=== PATIENT | male | born 1950 | race Caucasian/White ===

== ENCOUNTER 2017-10-17 16:08 | Inpatient (IN) | payer MEDICARE, BC, OTHER ==
[~2017-10-17] VITALS: Ht 195.6 cm; Wt 136.1 kg
[2017-10-17 16:36] LABS: ABSOLUTE BASOPHILS 0.1 thou/uL (0.0-0.2); ABSOLUTE EOSINOPHILS 0.4 thou/uL (0.0-0.7); ABSOLUTE LYMPHOCYTES 1.9 thou/uL (0.8-5.3); ABSOLUTE MONOCYTES 0.9 thou/uL (0.0-1.2); ABSOLUTE NEUTROPHILS 7.1 thou/uL (1.6-8.1); BASOPHILS 1.2 %; EOSINOPHILS 3.4 %; HEMATOCRIT 39.7 % (42.0-52.0); LYMPHOCYTES 18.4 %; MCH 27.9 pg (26.0-34.0); MCHC 32.8 g/dL (28.0-37.0); MCV 84.9 fL (80.0-100.0); MONOCYTES 8.2 %; MPV 9.5 fl. (7.2-11.1); NUCLEATED RBCS 0 /100WBC; PLATELET COUNT* 225 thou/uL (150-400); POLYS 68.8 %; RBC 4.68 mil/uL (4.50-6.00); WBC 10.4 thou/uL (4.0-11.0)
[2017-10-17 16:41] LABS: ANION GAP 8 mmol/L (7-16); BUN 27 mg/dL (7-18); CALCIUM 9.2 mg/dL (8.5-10.1); CHLORIDE 106 mmol/L (98-107); CO2 27 mmol/L (21-32); CREATININE 1.3 mg/dL (0.6-1.3); GLUCOSE 103 mg/dL (70-99); POTASSIUM 4.3 mmol/L (3.5-5.1); SODIUM 141 mmol/L (136-145)
[2017-10-17 16:48] LABS: ALBUMIN 3.7 g/dL (3.4-5.0); ALKALINE PHOSPHATASE 49 U/L (46-116); SGOT 26 U/L (15-37); SGPT 30 U/L (30-65); TOTAL BILIRUBIN 0.7 mg/dL (<0.1-1.0); TOTAL PROTEIN 7.1 g/dL (6.4-8.2); TROPONIN-I LEVEL <0.06 ng/mL (<0.06)
[2017-10-17 17:28] LABS: APTT 26.1 Seconds (25.0-31.3); INR 1.2; PROTIME 11.5 Seconds (9.20-11.50)
[2017-10-17] MEDS ORDERED: LASIX 40 MG TAB40 M2 PO (17:38)
[2017-10-17] MEDS ORDERED: TOPROL XL25 MG PO (17:38)
[2017-10-17] MEDS ORDERED: KLOR-CON 1010 MEQ PO (17:38)
[2017-10-17] MEDS ORDERED: ALDACTONE25 MG PO (17:38)
[2017-10-17] MEDS ORDERED: ASPIR 8181 MG PO (17:39)
[2017-10-17] MEDS ORDERED: AMLODIPINE BESY10 MG PO (17:39)
[2017-10-17] MEDS ORDERED: MOBIC15 MG PO (17:39)
[2017-10-17] MEDS ORDERED: LIPITOR20 MG PO (17:40)
[2017-10-17] MEDS ORDERED: METHOTREXATE 22.5 MG PO (17:41)
[2017-10-17] MEDS ORDERED: FOLIC ACID 1 MG1 MG PO (17:41)
[2017-10-17 20:07] VITALS: BP 105/66
[2017-10-17 20:30] VITALS: BP 113/65
[2017-10-17] MEDS ORDERED: TRAZODONE HCL50 MG PO (23:35)
[2017-10-18] VITALS (7 sets, daily range): BP systolic 83–124; BP diastolic 52–77
[2017-10-18 05:48] LABS: ABSOLUTE BASOPHILS 0.1 thou/uL (0.0-0.2); ABSOLUTE EOSINOPHILS 0.3 thou/uL (0.0-0.7); ABSOLUTE LYMPHOCYTES 1.4 thou/uL (0.8-5.3); ABSOLUTE MONOCYTES 0.7 thou/uL (0.0-1.2); ABSOLUTE NEUTROPHILS 5.5 thou/uL (1.6-8.1); BASOPHILS 1.1 %; EOSINOPHILS 3.7 %; HEMATOCRIT 38.2 % (42.0-52.0); LYMPHOCYTES 17.5 %; MCHC 31.4 g/dL (28.0-37.0); MONOCYTES 8.8 %; MPV 9.8 fl. (7.2-11.1); NUCLEATED RBCS 0 /100WBC; PLATELET COUNT* 191 thou/uL (150-400); POLYS 68.9 %; RBC 4.44 mil/uL (4.50-6.00)
[2017-10-18 06:27] LABS: CALCIUM 8.7 mg/dL (8.5-10.1); CREATININE 1.2 mg/dL (0.6-1.3); POTASSIUM 4.6 mmol/L (3.5-5.1)
--- NOTE | 2017-10-18 07:03 | NUR ---
RECEIVED REPORT FROM ER NURSE, RACHELLE, AT 1954. PT ARRIVED VIA CART AT 2019. VOICED NO CONCERNS, PT ORIENTED TO ROOM AND CALL LIGHT, REFUSED SCD'S THIS SHIFT. PT CONTINUES ON IV FLUIDS, LUNGS CLEAR, DENIES PAIN, CALL LIGHT WITHIN REACH. PT NPO FOR CARIDOLOGY CONSULT.
--- NOTE | 2017-10-18 10:00 | NUR ---
ASSUMED CARE OF PT AT 0730. PT RESTING IN BED WAITING FOR CARDIOLOGY. PT NPO FOR CARDIOLOGY CONSULT. PT A&0X4. DENIES ANY PAIN OR SHORTNESS OF BREATH. PT ON 2L NC SAT 99%. PT SAT ON RA 95%. PT TRACING AFIB ON THE ELEMENT WINDING MACHINE TENDER. RATE IN THE 110'S. PT UP AD ROD IN ROOM. IVF. AM ASSESSMENT CHARTED. MEDICATIONS PER DEC. PT REPOSITIONS SELF IN BED WITH REMINDERS. HOURLY ROUNDING OBSERVED. BED IN LOW POSITION. CALL LIGHT WITHIN REACH. WILL CONTINUE PLAN OF CARE.
--- NOTE | 2017-10-18 14:37 | NUR ---
CM ASSESSMENT: Pt is A&O. Resides at home alone. Independent with ADLs, continues to cook, clean and drive. Pt states that he does have support, though not a lot of it. Pt wears a leg orthotic. No other DME. No hx of HH or SNF. Goal is to return home once medically stable.
--- NOTE | 2017-10-18 17:24 | NUR ---
NO ACUTE CHANGES THROUGHOUT SHIFT. REFER TO CHARTING. CARDIOLOGY HERE TO SEE PT. ORDERS RECEIVED TO START AMIODARONE LOAD AND ELIQUIS. PT CONTINUES TO TRACE AFIB ON THE RUG SHAMPOOER. RATE IN THE 110'S. PT DENIES ANY SHORTNESS OF BREATH OR PAIN. ON RA SAT UPPER 90'S. PT UP AD ROD IN ROOM. IVF. MEDICATIONS PER DEC. PT REPOSITIONS SELF IN BED. HOURLY ROUNDING OBSERVED. BED IN LOW POSITION. CALL LIGHT WITHIN REACH. WILL CONTINUE PLAN OF CARE.
--- NOTE | 2017-10-18 17:40 | EKG ---
[place] [address] ELECTROCARDIOGRAM REPORT Name: MULUGETA LARES Room: [address] ADM IN [facility]#: [id number] Admission: 10/17/17 Attend Phys: Benjamin Hart MD Discharge: Date of : 50 Report #: [id number] THIS REPORT FOR: //name// [facility] ED Test Date: 2017-10-17 Test Time: 16:16:28 Pat Name: MULUGETA LARES Department: Room: [facility] Gender: Hotel Custodian: Aparna WAKEFIELD : 1950 Requested By: Nlida Resendez Order Number: [id number] MD: Brien Angulo Measurements Intervals [place] Rate: 118 P: [place]: QRS: -47 QRSD: 127 T: 116 QT: 349 QTc: 490 Interpretive Statements Atrial fibrillation Left bundle branch block No previous ECG available for comparison Electronically Signed On 10-18-2017 17:40:34 MODEL HOME SALES GREETER by Brien Angulo [email or web address] <ELECTRONICALLY SIGNED> By: Brien Angulo MD, [facility] 10/18/17 1740 1616 15 Brien Angulo MD, FACC /EPI
[2017-10-19] VITALS (25 sets, daily range): BP systolic 105–149; BP diastolic 55–96
[2017-10-19 05:28] LABS: ABSOLUTE BASOPHILS 0.1 thou/uL (0.0-0.2); ABSOLUTE EOSINOPHILS 0.2 thou/uL (0.0-0.7); ABSOLUTE LYMPHOCYTES 1.2 thou/uL (0.8-5.3); ABSOLUTE MONOCYTES 0.7 thou/uL (0.0-1.2); ABSOLUTE NEUTROPHILS 5.8 thou/uL (1.6-8.1); BASOPHILS 0.8 %; EOSINOPHILS 3.1 %; HEMATOCRIT 36.3 % (42.0-52.0); HEMOGLOBIN 11.8 gm/dL (14.0-18.0); LYMPHOCYTES 15.4 %; MCH 27.8 pg (26.0-34.0); MCHC 32.5 g/dL (28.0-37.0); MCV 85.4 fL (80.0-100.0); MONOCYTES 8.5 %; MPV 9.4 fl. (7.2-11.1); NUCLEATED RBCS 0 /100WBC; PLATELET COUNT* 173 thou/uL (150-400); POLYS 72.2 %; RBC 4.26 mil/uL (4.50-6.00); RDW-CV 16.8 % (10.5-14.5)
[2017-10-19 05:56] LABS: ALBUMIN 3.4 g/dL (3.4-5.0); CREATININE 1.1 mg/dL (0.6-1.3); POTASSIUM 4.4 mmol/L (3.5-5.1); TOTAL BILIRUBIN 0.7 mg/dL (<0.1-1.0)
--- NOTE | 2017-10-19 07:09 | NUR ---
Pt reports he got some sleep overnight. Pleasant and cooperative; VSS though HR has been 110's to 120's, up to 130's with activity. First dose of PO amiodarone given at 2014 last night. HR improved some since dosing. No complaints. Will continue to monitor.
--- NOTE | 2017-10-19 10:30 | NUR ---
ASSUMED CARE OF PT AT 0730. PT RESTING IN BED WAITING FOR BREAKFAST. PT A&0X4. DENIES ANY PAIN OR SHORTNESS OF BREATH AT THIS TIME. PT TRACING AFIB ON THE CHIEF OPERATOR HYDROFORMER. RATE IN THE 110'S. 120'S-130'S WITH ACTIVITY. ON RA SAT UPPER 90'S. PT ON AMIO LOAD CURRENTLY. IVF. PT UP AD ROD IN ROOM. PT GOAL FOR TODAY IS RATE CONTROL AND CARDIOLOGY INPUT. AM ASSESSMENT CHARTED. MEDICATIONS PER DEC. PT REPOSITIONS SELF IN BED WITH REMINDERS. HOURLY ROUNDING OBSERVED. BED IN LOW POSITION. CALL LIGHT WITHIN REACH. WILL CONTINUE PLAN OF CARE.
--- NOTE | 2017-10-19 15:24 | TEE ---
[place] [address] TRANSESOPHAGEAL ECHOCARDIOGRAM Name: MULUGETA LARES Room: [address] IN [facility]#: [id number] Admission: 10/17/17 Attend Phys: Benjamin Hart, Discharge: Date of : 50 Date of Service: 10/19/17 1524 Report #: [id number] THIS REPORT FOR: //name// APPROVED REPORT Study performed: 10/19/2017 14:31:33 EXAM: Transesophageal Echocardiogram Patient Location: In-Patient Room #: [facility] Status: routine BSA: 2.66 HR: 118 bpm BP: 140/82 mmHg Rhythm: Atrial Fibrillation Other Information Study Quality: Good Indications Atrial Fibrillation Echo Enhancing Agent Indication: Rule out Shunt Agent(s) / Amount(s) Used: Agitated Saline 10 cc Procedure After obtaining informed consent, patient underwent transesophageal echo in the [employer]. Type of Sedation : Conscious Sedation Sedation was administered by Vicki Merino RN. Sedation start time: 1430 Case end Time: 1447 Sedation was achieved intravenously with: Versed (6) Fentanyl (150) Transesophageal probe was inserted and advanced into esophagus without difficulty by Brien Angulo MD, FACC. Echo enhancement indication: R/O Septal defect. Echo enhancement agent administered: Agitated Saline The ELADIO was performed without complications. Synchronized Cardioversion acheived with 360 Joules after 2 attempt(s). Throughout the procedure, the blood pressure, pulse oximetry, cardiac rhythm, and rate were monitored. The patient tolerated the procedure without adverse effects. Recovery from conscious sedation was uneventful and vital signs were [address] [address] TRANSESOPHAGEAL ECHOCARDIOGRAM Name: MULUGETA LARES Reg Room: [address]#: [id number] Admission: 10/17/17 Attend Phys: Benjamin Hart, Discharge: Date of : 50 Date of Service: 10/19/17 1524 Report #: [id number] stable. Left Ventricle The left ventricle is normal size. There is normal LV segmental wall motion. There is normal left ventricular wall thickness. Left ventricular systolic function is normal. LVEF is 60-65%. Right Ventricle The right ventricle is normal size. The right ventricular systolic function is normal. Atria No thrombus is visualized in the left atrium or appendage. Left atrium is mildly dilated. Interatrial septum is intact without evidence of ASD or PFO. Right atrium is mildly dilated. Aortic Valve The aortic valve is normal in structure. Moderate aortic regurgitation. There is no aortic valvular stenosis. Mitral Valve The mitral valve is normal in structure. Moderate mitral regurgitation. No evidence of mitral valve stenosis. Tricuspid Valve The tricuspid valve is normal in structure. Pulmonic Valve The pulmonary valve is normal in structure. Great Vessels The aortic root is normal in size. Pericardium There is no pericardial effusion. <Conclusion> The left ventricle is normal size. There is normal left ventricular wall thickness. Left ventricular systolic function is normal. LVEF is 60-65%. No thrombus is visualized in the left atrium or appendage. Left atrium is mildly dilated. Right [place] [address] TRANSESOPHAGEAL ECHOCARDIOGRAM Name: LUDAMULUGETA Reg Room: [address] IN [facility]#: [id number] Admission: 10/17/17 Attend Phys: Benjamin Hart, Discharge: Date of : 50 Date of Service: 10/19/17 1524 Report #: [id number] Moderate aortic regurgitation. Moderate mitral regurgitation. <ELECTRONICALLY SIGNED> By: Brien Angulo MD, FACC 10/19/17 1524 1524 1524 Brien Angulo MD, FACC /INF
--- NOTE | 2017-10-19 17:35 | NUR ---
PT BACK FROM LADIES LOCKER ROOM ATTENDANT. PT RECEIVED ELADIO AND CARDIOVERSION. PER GAUDENCIO, LADIES LOCKER ROOM ATTENDANT RN, PT SHOCKED 2 TIMES. PT CURRENTLY TRACING SR WITH BBB AND FIRST DEGREE ON THE TIP CEMENTER. PT DENIES ANY PAIN OR SHORTNESS OF BREATH. STATES HE FEELS GOOD. CARDIZEM GTT DISCONTINUED. PO CARDIZEM STARTED PER JILL, BAKER BISCUIT. IVF DISCONTINUED PER DR RICARDO. DAUGHTER AT BEDSIDE AT THIS TIME. PT CONTINUES TO BE ON RA SAT UPPER 90'S. NEW IV PLACED TO L HAND, SL. PT UP AD ROD IN ROOM. MEDICATIONS PER DEC. PT REPOSITIONS SELF. HOURLY ROUNDING OBSERVED. BED IN LOW POSITION. CALL LIGHT WITHIN REACH. WILL CONTINUE PLAN OF CARE.
--- NOTE | 2017-10-19 17:41 | EKG ---
[place] [address] ELECTROCARDIOGRAM REPORT Name: LARESMULUGETA Reg Room: [address] ADM IN [facility].#: [id number] Admission: 10/17/17 Attend Phys: Benjamin Hart MD Discharge: Date of : 50 Report #: [id number] THIS REPORT FOR: //name// [facility] Test Date: 2017-10-19 Test Time: 13:25:55 Pat Name: MULUGETA LARES Department: Room: [address] Gender: M Lens Polisher: 27 : 1950 Requested By: Alanna Case Order Number: [id number] Rashel MD: Brien Angulo Measurements Intervals [place] Rate: 119 P: ID: QRS: -45 QRSD: 126 T: 119 QT: 346 QTc: 487 Interpretive Statements Atrial fibrillation Left bundle branch block Compared to ECG 10/17/2017 16:16:28 No significant changes Electronically Signed On 10-19-2017 17:41:39 JANITOR HEAD by Brien Angulo [email or web address] <ELECTRONICALLY SIGNED> By: Brien Angulo MD, [facility] 10/19/17 1741 1325 1325 Brien Angulo MD, FACC /EPI
[2017-10-20] VITALS: BP 123/69
[2017-10-20 03:57] VITALS: BP 139/77
[2017-10-20 04:58] LABS: MCHC 31.7 g/dL (28.0-37.0); MCV 85.4 fL (80.0-100.0); MPV 9.2 fl. (7.2-11.1); NUCLEATED RBCS 0 /100WBC; PLATELET COUNT* 180 thou/uL (150-400); RBC 4.46 mil/uL (4.50-6.00); RDW-CV 16.8 % (10.5-14.5); WBC 11.1 thou/uL (4.0-11.0)
[2017-10-20 05:23] LABS: CALCIUM 9.2 mg/dL (8.5-10.1); CREATININE 1.2 mg/dL (0.6-1.3); POTASSIUM 4.6 mmol/L (3.5-5.1)
[2017-10-20 06:18] LABS: ABSOLUTE EOSINOPHILS 0.1 thou/uL (0.0-0.7); ABSOLUTE LYMPHOCYTES 1.7 thou/uL (0.8-5.3); ABSOLUTE MONOCYTES 1.2 thou/uL (0.0-1.2); ABSOLUTE NEUTROPHILS 8.1 thou/uL (1.6-8.1); ANISOCYTOSIS 1+; PLATELET ESTIMATE ADEQUATE; POIKILOCYTOSIS 1+
--- NOTE | 2017-10-20 07:00 | NUR ---
Pt reports he rested well overnight. Remains in SR per monitor, rate 60s. VSS. States he is hopeful of being discharged today. Will continue to monitor.
[2017-10-20 07:30] VITALS: BP 120/58
[2017-10-20 12:13] VITALS: BP 127/65
--- NOTE | 2017-10-20 14:00 | NUR ---
RECEIVED PT CARE 0700. PT IS ALERT AND ORIENTED X4. VSS. JEWELRY CONSULTANT TRACING SR WITH 1ST/BBB. PATIENT COMPLAINS OF MORE SHORTNESS OF AIR THAN USUAL TODAY. O2 SAT 93% ON ROOM AIR. IV DOSE OF LASIX ORDERED AND GIVEN PER CARDIOLOGY. AM ASSESSMENT CHARTED. MEDS PER MAR. CALL LIGHT WITHIN REACH. WILL CONTINUE TO MONITOR.
--- NOTE | 2017-10-20 15:49 | EKG ---
[place] [address] ELECTROCARDIOGRAM REPORT Name: MULUGETA LARES Room: [address] ADM IN [facility].#: [id number] Admission: 10/17/17 Attend Phys: Benjamin Hart MD Discharge: Date of : 50 Report #: [id number] THIS REPORT FOR: //name// [facility] Test Date: 2017-10-20 Test Time: 09:18:17 Pat Name: MULUGETA LARES Department: Room: [address] Gender: M Predictive Maintenance Technician: [facility] : 1950 Requested By: Alanna Case Order Number: [id number] Reading MD: Adalberto Damian Measurements Intervals [place] Rate: 69 P: -35 LA: 233 QRS: -43 QRSD: 131 T: 41 QT: 438 QTc: 470 Interpretive Statements Sinus rhythm Atrial premature complex Prolonged LA interval Left bundle branch block Compared to ECG 10/19/2017 13:25:55 Atrial premature complex(es) now present First degree AV block now present Atrial fibrillation no longer present Electronically Signed On 10-20-2017 15:48:53 LINE MECHANIC by Adalberto Damian [email or web address] <ELECTRONICALLY SIGNED> By: Adalberto Damian MD, [facility] 10/20/17 1548 7 7 Adalberto Damian MD, [facility] /EPI
[2017-10-20 16:45] VITALS: BP 126/67
--- NOTE | 2017-10-20 19:05 | NUR ---
PATIENT PROGRESSING TOWARDS GOALS. SHORTNESS OF AIR DECREASED AFTER LASIX GIVEN. PATIENT NOT AUDIBLY WHEEZING THIS AFTERNOON. TOLERATING HIS DIET WELL WITHOUT NAUSEA OR VOMITING. NO COMPLAINTS OF PAIN THIS SHIFT. HOLDING DISCHARGE TILL TOMORROW TO MONITOR BLOOD PRESSURE AND SHORTNESS OF AIR. HOURLY ROUNDING CHARTED. CALL LIGHT WITHIN REACH. WILL CONTINUE TO MONITOR.
[2017-10-20 20:05] VITALS: BP 121/56
[2017-10-21] VITALS: BP 120/63
[2017-10-21 04:00] VITALS: BP 127/64
--- NOTE | 2017-10-21 07:00 | NUR ---
Pt reports he got some sleep last night, but not very restful overall. VSS. States he is hopeful of being discharged today. Will continue to monitor.
[2017-10-21 07:30] VITALS: BP 124/72
[2017-10-21 12:16] VITALS: BP 126/57
--- NOTE | 2017-10-21 12:38 | NUR ---
RECEIVED PT CARE 0700. PT IS ALERT AND ORIENTED X4. VSS. WOOD WINDOW AND DOOR CRAFTSMAN TRACING SR WITH 1ST/BBB. PATIENT DENIES PAIN. NO SOA. O2 SAT 93% ON ROOM AIR. UP AD ROD IN ROOM WITH BATHROOM PRIVILEDGES. GAIT IS STEADY. AM ASSESSMENT CHARTED. MEDS PER MAR. PLANNING FOR DC TO HOME THIS AFTERNOON. WILL CONTINUE TO MONITOR.
[2017-10-21] MEDS ORDERED: PACERONE 200 M200 M1 PO (14:31)
[2017-10-21] MEDS ORDERED: CARDIZEM CD120 MG PO (14:33)
[2017-10-21] MEDS ORDERED: PACERONE200 MG PO (14:33)
[2017-10-21] MEDS ORDERED: ELIQUIS5 MG PO (14:34)
[2018-01-05] MEDS ORDERED: ALDACTONE50 MG PO (11:29)
[2018-07-27] MEDS ORDERED: FISH OIL 1,001000 M2 PO (10:00)
== END 2017-10-21 15:15 | disposition home or self-care (01) | DRG 291 ==
LOC: M.ERS 16:08 → M.2W 18:13 → M.TBA-ER 18:13 → M.2W 20:53
PROVIDERS: Personal Emergency Response Attendant; ADMIT Internal Medicine
PROC: B24BZZ4 Ultrasonography of Heart with Aorta, Transesophageal (ICD-10-PCS; principal; 2017-10-19)
PROC: 5A2204Z Restoration of Cardiac Rhythm, Single (ICD-10-PCS; 2017-10-21)
DX: I11.0 Hypertensive heart disease with heart failure (principal); J96.20 Acute and chronic respiratory failure, unspecified whether with hypoxia or hypercapnia; I48.91 Unspecified atrial fibrillation; I50.31 Acute diastolic (congestive) heart failure; I95.9 Hypotension, unspecified; M19.90 Unspecified osteoarthritis, unspecified site; I35.1 Nonrheumatic aortic (valve) insufficiency; E66.9 Obesity, unspecified; E78.5 Hyperlipidemia, unspecified; Z79.899 Other long term (current) drug therapy; Z68.35 Body mass index [BMI] 35.0-35.9, adult; Z82.49 Family history of ischemic heart disease and other diseases of the circulatory system

== ENCOUNTER → 2017-10-31 | Outpatient (CLI) | payer MEDICARE, BC, OTHER ==
[~2017-10-31] MED LIST: ALDACTONE25 MG PO; ALDACTONE50 MG PO; AMLODIPINE BESY10 MG PO; ASPIR 8181 MG PO; CARDIZEM CD120 MG PO; ELIQUIS5 MG PO; FISH OIL 1,001000 M2 PO; FOLIC ACID 1 MG1 MG PO; KLOR-CON 1010 MEQ PO; LASIX 40 MG TAB40 M2 PO; LIPITOR20 MG PO; METHOTREXATE 22.5 MG PO; MOBIC15 MG PO; PACERONE 200 M200 M1 PO; PACERONE200 MG PO; TOPROL XL25 MG PO; TRAZODONE HCL50 MG PO
== END ==
LOC: M.RAD 11:24
DX: I48.91 Unspecified atrial fibrillation (principal); I51.7 Cardiomegaly; R91.8 Other nonspecific abnormal finding of lung field; J98.11 Atelectasis

== ENCOUNTER → 2018-01-05 | Outpatient (CLI) | payer MEDICARE, BC, OTHER ==
[2018-01-05] VITALS (14 sets, daily range): BP systolic 96–118; BP diastolic 49–78
--- NOTE | 2018-01-05 16:18 | TEE ---
[place] [address] TRANSESOPHAGEAL ECHOCARDIOGRAM Name: MULUGETA LARES Room: [facility]#: [id number] Admission: 01/05/18 Attend Phys: Brien Angulo, Discharge: Date of : 50 Date of Service: 01/05/18 1618 Report #: [id number] THIS REPORT FOR: //name// APPROVED REPORT Study performed: 01/05/2018 11:35:17 EXAM: Transesophageal Echocardiogram Patient Location: Out-Patient Status: routine BSA: 2.62 HR: 87 bpm BP: 117/63 mmHg Rhythm: Atrial Fibrillation Other Information Study Quality: Good Indications Atrial Fibrillation Pre cardioversion Echo Enhancing Agent Indication: Rule out Shunt Agent(s) / Amount(s) Used: Agitated Saline 10 cc Procedure After obtaining informed consent, patient underwent transesophageal echo in the [employer]. Type of Sedation : Conscious Sedation Sedation was administered by Vicki Merino RN. Sedation start time: 1134 Case end Time: 1155 Sedation was achieved intravenously with: Versed (5) Fentanyl (100) Transesophageal probe was inserted and advanced into esophagus without difficulty by Brien Angulo MD, [facility]. Echo enhancement indication: R/O Septal defect. Echo enhancement agent administered: Agitated Saline The ELADIO was performed without complications. Synchronized Cardioversion acheived with 300 Joules after 1 attempt(s). Rhythm following Synchronized Cardioversion: Normal Sinus Rhythm Throughout the procedure, the blood pressure, pulse oximetry, cardiac rhythm, and rate were monitored. The patient tolerated the procedure without adverse [place] [address] TRANSESOPHAGEAL ECHOCARDIOGRAM Name: MULUGETA LARES Room: [facility]#: [id number] Admission: 01/05/18 Attend Phys: Brien Angulo, Discharge: Date of : 50 Date of Service: 01/05/18 1618 Report #: [id number] from conscious sedation was uneventful and vital signs were stable. Left Ventricle The left ventricle is normal size. There is normal left ventricular wall thickness. The left ventricular systolic function is normal. LVEF is 60-65%. Right Ventricle The right ventricle is normal size. The right ventricular systolic function is normal. Atria No thrombus is visualized in the left atrium or appendage. Left atrium is mildly dilated. Interatrial septum is intact without evidence of ASD or PFO. Right atrium is mildly dilated. Aortic Valve The aortic valve is normal in structure. Moderate aortic regurgitation. Mitral Valve The mitral valve is normal in structure. Moderate mitral regurgitation. Tricuspid Valve Tricuspid valve is not well visualized. Pulmonic Valve Pulmonic valve is not well visualized. Great Vessels The ascending aorta is normal in size. Pericardium There is no pericardial effusion. <Conclusion> The left ventricle is normal size. There is normal left ventricular wall thickness. The left ventricular systolic function is normal. LVEF is 60-65%. Interatrial septum is intact without evidence of ASD or PFO. No thrombus is visualized in the left atrium or appendage. Left atrium [place] [address] TRANSESOPHAGEAL ECHOCARDIOGRAM Name: MULUGETA LARES Reg Room: [facility]#: [id number] Admission: 01/05/18 Attend Phys: Brien Angulo, Discharge: Date of : 50 Date of Service: 01/05/181617 Report #: [id number] Moderate aortic regurgitation. Moderate mitral regurgitation. <ELECTRONICALLY SIGNED> By: Brien Angulo MD, FACC 01/05/18 1618 17 17 Brien Angulo MD, FACC /INF
== END ==
LOC: M.CL 10:33
DX: I48.91 Unspecified atrial fibrillation (principal)

== ENCOUNTER → 2018-07-27 | Outpatient (CLI) | payer MEDICARE, BC, OTHER ==
[2018-07-27] VITALS (9 sets, daily range): BP systolic 104–136; BP diastolic 53–77
[2018-07-27 10:03] LABS: HEMOGLOBIN 13.8 gm/dL (14.0-18.0); MCH 31.5 pg (26.0-34.0); MCHC 33.7 g/dL (28.0-37.0); MCV 93.5 fL (80.0-100.0); MPV 10.1 fl. (7.2-11.1); RBC 4.38 mil/uL (4.50-6.00); RDW-CV 15.6 % (10.5-14.5); WBC 8.6 thou/uL (4.0-11.0)
[2018-07-27 10:15] LABS: ANION GAP 5 mmol/L (7-16); BUN 37 mg/dL (7-18); CHLORIDE 103 mmol/L (98-107); CO2 28 mmol/L (21-32); CREATININE 1.6 mg/dL (0.6-1.3); GLUCOSE 108 mg/dL (70-99); POTASSIUM 4.4 mmol/L (3.5-5.1); SODIUM 136 mmol/L (136-145)
[2018-07-27 10:17] LABS: APTT 28.9 Seconds (25.0-31.3); INR 1.2
[2018-07-27 10:21] LABS: ALBUMIN 3.7 g/dL (3.4-5.0); ALKALINE PHOSPHATASE 44 U/L (46-116); CHOLESTEROL 125 mg/dL (<200); HDL CHOLESTEROL 43 mg/dL (>40); LDL CHOLESTEROL 65 mg/dL (<100); SGOT 35 U/L (15-37); SGPT 30 U/L (30-65); TC:HDL 2.9 Ratio (Not establshd); TRIGLYCERIDE 88 mg/dL (<150); VLDL 18 mg/dL (<40)
[2018-07-27 10:26] LABS: SERUM ASSESSMENT Clear
--- NOTE | 2018-07-27 12:37 | EKG ---
[place] [address] ELECTROCARDIOGRAM REPORT Name: LUDAMULUGETA Reg Room: [facility]#: [id number] Admission: 07/27/18 Attend Phys: Johny Ng MD Discharge: Date of : 50 Report #: [id number] THIS REPORT FOR: //name// [facility] Test Date: 2018-07-27 Test Time: 10:36:43 Pat Name: MULUGETA LARES Department: Room: Gender: M Operating Room Orderly: : 1950 Requested By: Johny Ng Order Number: [id number] Reading MD: Johny Ng Measurements Intervals [place] Rate: 52 P: -34 MI: 278 QRS: -47 QRSD: 140 T: 74 QT: 483 QTc: 450 Interpretive Statements Sinus rhythm Prolonged MI interval Consider left atrial enlargement Left bundle branch block Compared to ECG 10/20/2017 09:18:17 Atrial premature complex(es) no longer present Electronically Signed On 07-27-2018 12:37:35 CDT by Johny Ng [email or web address] <ELECTRONICALLY SIGNED> By: Johny Ng MD, FACC 07/27/18 1237 1036 1036 Johny Ng MD, [facility] /EPI
--- NOTE | 2018-07-27 12:37 | EKG ---
[place] [address] ELECTROCARDIOGRAM REPORT Name: MULUGETA LARES Reg Room: [facility]#: [id number] Admission: 07/27/18 Attend Phys: Johny Ng MD Discharge: Date of : 50 Report #: [id number] THIS REPORT FOR: //name// [facility] Test Date: 2018-07-27 Test Time: 10:33:06 Pat Name: MULUGETA LARES Department: Room: Gender: M Drafter Mechanical: : 1950 Requested By: Johny Ng Order Number: [id number] Reading MD: Johny Ng Measurements Intervals [place] Rate: 66 P: [place]: QRS: -47 QRSD: 141 T: 103 QT: 450 QTc: 472 Interpretive Statements Atrial fibrillation Left bundle branch block Compared to ECG 10/20/2017 09:18:17 Sinus rhythm no longer present Atrial premature complex(es) no longer present First degree AV block no longer present Electronically Signed On 07-27-2018 12:37:31 CDT by Johny Ng [email or web address] <ELECTRONICALLY SIGNED> By: Johny Ng MD, FACC 07/27/18 1237 1033 1033 Johny Ng MD, FAC /EPI
--- NOTE | 2018-07-27 12:37 | EKG ---
[place] [address] ELECTROCARDIOGRAM REPORT Name: MULUGETA LARES Room: [facility]#: [id number] Admission: 07/27/18 Attend Phys: Johny Ng MD Discharge: Date of : 50 Report #: [id number] THIS REPORT FOR: //name// [facility] Test Date: 2018-07-27 Test Time: 10:06:56 Pat Name: MULUGETA LARES Department: Room: Gender: M Lot Associate: : 1950 Requested By: Johny Ng Order Number: [id number] Reading MD: Johny Ng Measurements Intervals [place] Rate: 83 P: [place]: QRS: -46 QRSD: 144 T: 109 QT: 444 QTc: 522 Interpretive Statements Atrial fibrillation Ventricular premature complex Left bundle branch block Baseline wander in lead(s) V2 Compared to ECG 10/20/2017 09:18:17 Ventricular premature complex(es) now present Sinus rhythm no longer present Atrial premature complex(es) no longer present First degree AV block no longer present Electronically Signed On 07-27-2018 12:37:26 CDT by Johny Ng [email or web address] <ELECTRONICALLY SIGNED> By: Johny Ng MD, FACC 07/27/18 1237 1006 Johny Ng MD, FACC /EPI
--- NOTE | 2018-07-31 09:11 | CARD ---
[address] [address] CARDIAC CATH REPORT Name: MULUGETA LARES Room: [facility]#: [id number] Admission: 07/27/18 Attend Phys: Johny Ng MD Discharge: Date of : 50 Report #: [id number] THIS REPORT FOR: //name// CC: Johny [facility] DATE OF SERVICE: 07/27/2018 NAME OF PROCEDURE: Cardioversion, elective outpatient. PRIMARY RETIREMENT VILLAGE MANAGER: Adalberto Damian M.D. [facility]. INDICATIONS: Atrial fibrillation. HISTORY OF PRESENT ILLNESS: The patient has a history of heart disease and had been pretreated with amiodarone and had been on Eliquis for more than 30 days prior to the procedure. He took the medications even on today's procedural date. CONSENT: The risks and benefits of the procedure were described to the patient in lay terms. The patient elects to proceed. His baseline ECG demonstrated atrial fibrillation with a controlled ventricular response in the 70-90 beat per minute range. The patient did receive a total of 6 mg of IV Versed and 75 mcg of IV fentanyl for conscious sedation. Heart rate, oxygenation, blood pressure and respiratory rate were monitored per protocol. Initially, 250 joules, biphasic was utilized for the cardioversion attempt, but was unsuccessful after verifying this with an ECG. He was reassessed, sedation was readministered to achieve adequate level of conscious sedation and he was cardioverted again with 300 joules, which was successful. He did have a brief episode of bradycardia without cardiac pause and a heart rate in the low 40s. This promptly stacey to the 50s and a subsequent ECG demonstrated he was in a sinus rhythm with a left bundle branch block, this is a known conduction abnormality. His heart rate was 55. Post procedurally, the patient was monitored per protocol. IMPRESSION: 1. Atrial fibrillation. 2. Successful direct current cardioversion. <ELECTRONICALLY SIGNED> By: Brien Angulo MD, FACC 07/31/18 0911 1045 0033Johny Ng MD, FACC /nt
== END | disposition home or self-care (01) ==
LOC: M.CL 09:24
PROVIDERS: Internal Medicine Cardiovascular Disease
DX: I48.91 Unspecified atrial fibrillation (principal)